=== PATIENT | male | born 1965 | race Caucasian/White ===

== ENCOUNTER → 2020-05-17 15:07 | Outpatient (BNVA) | payer OTHER, SELFPAY | PROVIDERS: PCP Internal Medicine; Referring Provider Internal Medicine; Visit Provider Internal Medicine Cardiovascular Disease | DX: R06.02 Shortness of breath (principal); I48.0 Paroxysmal atrial fibrillation; I10 Essential (primary) hypertension; Z79.82 Long term (current) use of aspirin; Z79.899 Other long term (current) drug therapy | CPT/HCPCS: 93005 ==

== ENCOUNTER → 2021-09-01 14:39 | Outpatient (BNVA) | payer BC, SELFPAY | PROVIDERS: PCP Internal Medicine; Referring Provider Internal Medicine; Visit Provider Internal Medicine Cardiovascular Disease | DX: I48.0 Paroxysmal atrial fibrillation (principal); I10 Essential (primary) hypertension; R06.02 Shortness of breath; Z79.899 Other long term (current) drug therapy | CPT/HCPCS: 93005 ==

== ENCOUNTER 2021-09-27 07:13 | Outpatient (REF) | payer BC, SELFPAY ==
[2021-09-27 07:41] LABS: Hematocrit 49.9 % (42.0-52.0); Hemoglobin 16.7 g/dl (14.0-18.0); Mean Corpuscular HGB Conc 33.5 g/dl (31.0-36.0); Mean Corpuscular Hemoglobin 30.9 pg (27.0-33.0); Mean Corpuscular Volume 92.4 fL (80.0-98.0); Mean Platelet Volume 11.8 fL (9.4-12.4); Platelet Count 200 X10*3/uL (160-400); Red Cell Distribution Width 12.4 % (11.0-16.0); White Blood Count 8.8 X10*3/uL (4.8-10.8)
[2021-09-27 08:02] LABS: Anion Gap 12 (12-20); Blood Urea Nitrogen 13 mg/dL (9-16); Calcium 9.9 mg/dL (8.4-10.2); Carbon Dioxide 33 mmol/L (22-29); Chloride 104 mmol/L (96-108); Cholesterol 247 mg/dL; Estimated Glomerular Filt Rate > 60; Glucose Random 128 mg/dL (60-115); HDL Cholesterol 45 mg/dL; LDL Cholesterol Calculated 149 mg/dl; Potassium 4.4 mmol/L (3.3-5.1); Sodium 145 mmol/L (135-145); Triglycerides 268 mg/dL
== END 2021-09-27 07:14 | disposition home or self-care (01) ==
LOC: HO.LAB 07:13
PROVIDERS: PCP Internal Medicine; Visit Provider Internal Medicine Cardiovascular Disease
DX: I25.10 Atherosclerotic heart disease of native coronary artery without angina pectoris (principal); R06.02 Shortness of breath
CPT/HCPCS: 36415; 80048; 80061; 85027

== ENCOUNTER → 2021-10-03 07:33 | Outpatient (REF) | payer BC, SELFPAY ==
--- NOTE | ~2021-10-03 | NM_ITS ---
Exercise Myocardial perfusion study Indication: Shortness of breath to evaluate for myocardial ischemia Technique: The patient was brought in for an exercise perfusion study on 10/03/2021. Patient performed exercise as per Dwain protocol and was injected 30 mCi of sestamibi was given intravenously one target HR was achieved. Images were obtained using the SPECT gamma camera interlaced with the gating device. Images were obtained in supine position. Resting perfusion study was performed on 10/04/2021. Patient was administered 30 mCi of sestamibi intravenously at rest. Images were then obtained in supine position. Images obtained with and without CT attenuation. Total DLP 109 mGy-cm. Images were processed with the software and compared side to side in short axis, horizontal long axis and vertical long axis views. Findings: The stress perfusion study showed non attenuated images show mildly reduced uptake in the basal septum, moderately reduced uptake in the basal inferior and mildly reduced uptake. Wall of the LV myocardium. Remainder of the LV myocardium is normally perfused. Attenuation corrected images show mildly reduced uptake in the basal septum of the LV myocardium. Remainder of the LV myocardium is normally perfused. The gated study shows normal LV systolic function with calculated LVEF of 71%. LV cavity is normal in size. The gated study shows normal systolic wall thickening and contraction of all segments. There is no transient ischemic dilation. Resting study shows non attenuated images show moderately reduced uptake in the basal inferior and part improved uptake in the basal septum and mid inferior wall of the LV myocardium. Attenuation corrected images also showed improved uptake in the basal septum of the LV myocardium.. Gating at rest reveals normal systolic wall motion with ejection fraction at 74%. The findings are consistent with small area of mild intensity reversible defect of the basal septum suggestive of ischemia.. NM/NM cardiolite stress test Impression: 1. Basal septal ischemia of mild intensity 2. Gated LVEF is 71% 3. Transient ischemic dilatation not present Stress EKG is nondiagnostic for ischemia
--- NOTE | 2021-10-03 07:35 | CA_ITS ---
Acquisition Time: 2021-10-03 07:59:43 Total Exercise Time: 00:05:30 Test Indications: SOB, CP, AFIB Medications: NADOLOL VALSARTAN AMLODIPINE ASA Protocol: DWAIN Max HR: 141 BPM 87% of Pred: 162 BPM Max BP: 210/106 mmHG Max Work Load: 7.0 METS Exercise stress test with exercise 5 min 30 sec of Dwain protocol, with moderate shortness of breath, with isolated PACs, with BP 162/92 at baseline and cinthya to 210/106 with exercise, with nondiagnostic EKG due to baseline EKG abnormality: downsloping ST with T inversion inferiorly and V4-V6. BP improved in recovery. He took his usual home Nadolol in recovery. Nuclear images pending. Test reviewed with Dr Escalona. Referred By: Baljit Lai Overread By: JANEL REYES
== END ==
LOC: HO.CARD 07:33
PROVIDERS: PCP Internal Medicine; Visit Provider Internal Medicine Cardiovascular Disease
DX: R06.02 Shortness of breath (principal); R07.9 Chest pain, unspecified
CPT/HCPCS: 78452; 93017; A9500; J2785

== ENCOUNTER → 2021-10-28 07:25 | Outpatient (REF) | payer BC, SELFPAY ==
--- NOTE | 2021-10-28 07:29 | CA_ITS ---
Transthoracic Echocardiogram Patient (Last, First, Middle): Marcin Jones, Gender: Male Date of : 1965 Age: 56 Procedure Date: 10/28/2021 Procedure Type: Transthoracic Echocardiogram Location: OP Height: 180.34 cm Weight: 97.07 kg BSA: 2.17 m2 Heart Rate: bpm BP: 180 / 100 mmHg Industrial Truck Mechanic: VH/TO Referring MD: Baljit Lai MD Electric Truck Operator: Baljit Lai MD Symptoms: R06.02 - Shortness of breath Study Quality: Fair ECG Rhythm: Sinus Conclusions: - 1. Normal LV systolic and diastolic function 2. Normal cardiac valvular Doppler 3. Normal RV systolic pressure 4. No pericardial effusion Findings Left Ventricle Normal left ventricular size and systolic function. There is mildly increased left ventricular wall thickness. The visually estimated ejection fraction is between 60-65%. Spectral Doppler is indicative of a normal filling pattern. Right Ventricle Normal right ventricular cavity size and systolic function. Atria The left atrium is normal in size. Interatrial shunt cannot be excluded. The right atrium is normal in size. Aortic Valve The aortic valve structure and function is likely normal. There is no aortic valve stenosis. There is no aortic valve regurgitation. Mitral Valve Likely normal mitral valve structure and function. There is trace mitral valve regurgitation. There is no mitral valve stenosis. Pulmonic Valve The pulmonic valve was not well visualized. Tricuspid Valve The tricuspid valve was not well visualized. There is trace tricuspid valve regurgitation. The right ventricular systolic pressure is normal. The right ventricular systolic pressure is 16 mmHg. Normal right atrial pressure. There is no evidence of pulmonary hypertension. Great Vessels All visible segments of the aorta are normal in size. The pulmonary artery was not well visualized. Venous The inferior vena cava is normal in size and collapses greater than 50% with inspiration. Pericardium/Pleural There is no evidence of pericardial effusion. Prior Study Comparison No significant change compared to prior study dated: 01/15/2019. Measurements 2D Linear Measurements IVSd: 1.16 0.6-0.9/0.6-1.0 cm LVIDd: 4.41 3.9-5.3/4.2-5.9 cm LVIDd Index: 2.03 2.4-3.2/2.2-3.1 cm/m2 LVIDs: 2.82 2.0-3.6 cm LVPWd: 1.21 0.7-1.1 cm LA Diam: 3.80 2.7-3.8/3.0-4.0 cm LAIDs Index: 1.75 1.5-2.3 cm/m2 LV Mass: 234.94 67-162/88-224 g LV Mass Index: 108.27 43-95/49-115 g/m2 LVOT Diam: 2.00 3.0+(-)1.3 cm Mitral Valve MV Pk E: 1.00 MV PK A: 0.55 MV Decel Time: 185.00 E/A: 1.80 E'Lateral: 12.60 E'Medial: 6.20 E/E' Med: 16.10 E/E' Lat: 7.90 PHT: 54.00 MVA PHT: 4.07 Decel Mower: 5.39 Aortic Valve AoV Pk Nigel: 1.02 AoV Mn Nigel: 0.71 AoV VTI: 0.22 AoV Pk Grad: 4.00 Aov Mn Grad: 2.00 VERONIQUE Cont.VTI: 3.14 LVOT LVOT Pk Nigel: 1.03 LVOT Mn Nigel: 0.65 LVOT VTI: 0.22 LVOT Pk Grad: 4.00 LVOT Mn Grad: 2.00 LVOT Diam: 2.00 LVOT Area: 3.14 Diastolic Function MV Pk E: 1.00 MV Pk A: 0.55 E/A: 1.80 E'Medial: 6.20 E/E' Med: 16.10 E' Laterial: 12.60 E/E' Lat: 7.90 Right Ventricle TAPSE (mm): 24.30 TVS' Nigel: 12.00 Tricuspid Valve TR Pk Nigel: 1.82 TR Pk Grad: 13.00 RA Press: 3.00 RVSP: 16.00 Great Vessels Aorta Sinus of Valsalva: 3.89 2.0-3.[address] Ridge: 2.69 1.7-3.4 cm Ao Asc: 3.10 2.1-3.4 cm Ao Arch: 3.00 Updated in Other Vendor System with Status of Final Baljit Lai MD electronically signed on 10/28/2021 3:49:07 PM with status of Final
== END ==
LOC: HO.CARD 07:25
PROVIDERS: PCP Internal Medicine; Visit Provider Internal Medicine Cardiovascular Disease
DX: R06.02 Shortness of breath (principal)
CPT/HCPCS: 93306

== ENCOUNTER 2021-11-25 07:37 | Outpatient (REF) | payer BC, SELFPAY ==
[2021-11-25 09:31] LABS: Anion Gap 13 (12-20); Blood Urea Nitrogen 10 mg/dL (9-16); Calcium 9.8 mg/dL (8.4-10.2); Carbon Dioxide 30 mmol/L (22-29); Chloride 103 mmol/L (96-108); Estimated Glomerular Filt Rate > 60; Glucose Random 130 mg/dL (60-115); Potassium 4.5 mmol/L (3.3-5.1); Sodium 141 mmol/L (135-145)
== END 2021-11-25 07:38 | disposition home or self-care (01) ==
LOC: HO.LAB 07:37
PROVIDERS: PCP Internal Medicine; Visit Provider Internal Medicine Cardiovascular Disease
DX: I10 Essential (primary) hypertension (principal)
CPT/HCPCS: 36415; 80048

== ENCOUNTER → 2022-08-30 15:18 | Outpatient (BNVA) | payer BC, SELFPAY | PROVIDERS: PCP Internal Medicine; Referring Provider Internal Medicine; Visit Provider Internal Medicine Cardiovascular Disease | DX: I48.0 Paroxysmal atrial fibrillation (principal); I10 Essential (primary) hypertension | CPT/HCPCS: 93005 ==

== ENCOUNTER 2023-09-04 15:01 | Outpatient (AMB) | payer BC, SELFPAY ==
[2023-09-04 15:15] VITALS: BP 120/78; PULSE 78; BMI 33.4
--- NOTE | 2023-09-04 15:15 | A.OFFVIS_ITS ---
Intake Vital Signs 09/04/23 15:15 Height 5 ft 6 in Weight 207 lb 3.752 oz BMI 33.4 BP 120/78 Blood Pressure Location Lt brachial Position Sitting Pulse 78 Intake Visit Reasons: 1 yr f/up Intake Note: 1 year follow-up with ekg feeling good Freight Loader Required: No Allergies No Known Allergies [NKA] Allergy (Mild, Verified 05/17/20 15:18) NOT APPLICABLE Medication List - Last Reconciled 09/04/23 by Baljit Lai MD amlodipine 10 mg PO DAILY 90 days aspirin 81 mg PO DAILY nadolol 80 mg PO DAILY 90 days valsartan 320 mg PO DAILY 90 days HPI HPI Comments History of Present Illness Details Marcin comes for follow-up. He has been doing well. His blood pressure is generally well controlled. He said when he is under stressful situation his blood pressure is elevated otherwise most of the other time the blood pressure is fine. Denies any worsening exertional chest pain or shortness of breath. He has been trying to lose weight and has Diovan 3 modification has lost about 10 lb. He still gets flutters in his chest at nighttime but no prolonged irregular heartbeat or palpitations. No lightheadedness, syncope. No orthopnea, PND, leg edema. [facility] Medical History Paroxysmal atrial fibrillation HTN (hypertension) Surgical History No pertinent past surgical history Family History Father No problems noted. Mother No problems noted. Review of Systems Const Denies chills, Denies fatigue, Denies fever(s), Denies frequent falls, Denies weakness, Denies weight gain and Denies weight loss ENT Denies dizziness Card Denies chest pain, Denies leg edema, Denies lightheadedness, Denies palpitations, Denies dyspnea, Denies dyspnea on exertion, Denies orthopnea and Denies other (loss of consciousness) Resp Denies cough, Denies dyspnea and Denies dyspnea on exertion GI Denies hematochezia and Denies change in stool character Musc Denies abnormal gait, Denies muscle weakness, Denies numbness, Denies radiating pain into limb and Denies tingling Neuro Denies abnormal gait, Denies dizziness, Denies frequent falls, Denies numbness, Denies tingling and Denies weakness Endo Denies fatigue and Denies palpitations Physical Exam Vital Signs: Last Vital Signs Pulse 78 09/04/23 15:15 BP 120/78 09/04/23 15:15 BMI result Body Mass Index 33.4 Const General: cooperative, comfortable, no acute distress, alert and awake Nutritional Appearance: obese Orientation/consciousness: patient oriented x3 Limitations: no limitations Eyes General: appearance normal, both eyes and all related structures Neck Neck: Yes normal visual inspection, Yes trachea midline, Yes supple and Yes no JVD Chest Chest palpation & inspection: normal inspection of the chest Resp Effort & Inspection: normal respiratory effort Auscultation: clear to auscultation bilaterally Cardio Jugular venous distension: no JVD Palpation: normal PMI Rate: regular rate Rhythm: regular rhythm Heart sounds: S1 normal heart sound present and S2 normal heart sound present Peripheral pulses: Peripheral pulses 2+ throughout GI Inspection: Yes normal to inspection Auscultation: normal bowel sounds Skin General skin exam: no rashes or lesions noted Neuro General: patient oriented x3 and no focal motor deficits Extrem General: Yes no clubbing, cyanosis or edema Psych Appearance: grossly normal Assessment & Plan Assessment & Plan (1) Paroxysmal atrial fibrillation: Code(s): I48.0 - Paroxysmal atrial fibrillation Plan: Highly symptomatic paroxysmal atrial fibrillation this middle-aged man has not had recurrence on current medical therapy on nadolol as well as change in his triggers. He is avoiding simultaneous eating heavy meals and alcohol. He does have increased flutter under stressful situation. We discussed about stress mitigation strategies. Avoidance of stimulants was discussed. Continue participate in weight loss program. (2) HTN (hypertension): Code(s): I10 - Essential (primary) hypertension Plan: Difficult control high blood pressure which is currently well optimized on triple therapy with amlodipine, nadolol and valsartan. Continue the same. He is derived good clinical benefit. No signs or symptoms of heart failure. Check lipid panel in near future and if LDL significantly elevated will benefit from statin therapy. Low-salt diet was discussed advised to monitor blood pressure at home maintain a log. Goal blood pressure less than 130/84. Follow up in the clinic in 1 year's time, sooner p.r.n.. Thank you for allowing me to partake in his care Orders: Orders Lipid Panel Today I10 - Essential (primary) hypertension Coding Level of Care Code Est Pt Level 4 (89446) Diagnoses Paroxysmal atrial fibrillation I48.0 HTN (hypertension) I10
== END 2023-09-04 15:39 | disposition home or self-care (01) ==
PROVIDERS: Visit Provider Internal Medicine Cardiovascular Disease
DX: I48.0 Paroxysmal atrial fibrillation (principal); I10 Essential (primary) hypertension
CPT/HCPCS: 99214

== ENCOUNTER → 2023-09-04 15:01 | Outpatient (BNVA) | payer BC, SELFPAY | PROVIDERS: Visit Provider Internal Medicine Cardiovascular Disease ==

== ENCOUNTER 2023-11-29 21:42 | Emergency (ER) | payer BC, SELFPAY ==
--- NOTE | ~2023-11-29 | XR_ITS ---
EXAMINATION: XR CHEST CLINICAL INFORMATION: Cough. COMPARISON: Chest radiograph 05/01/2018. TECHNIQUE: 2 views of the chest were obtained. FINDINGS: Normal appearance of the cardiomediastinal silhouette. No focal consolidation, pleural effusion or pneumothorax. No evidence of pulmonary edema. No acute osseous findings. XR/XR chest 2V IMPRESSION: No acute cardiopulmonary findings.
[2023-11-29 21:54] VITALS: BP 190/103; PULSE 100; RESP 18; TEMP 37.3; O2SAT 95; BMI 33.8
--- NOTE | 2023-11-29 23:48 | PC.NURSE ---
per chart comment pt left at 0645
== END 2023-11-29 23:49 | disposition left against medical advice (07) ==
PROVIDERS: Emergency Provider Emergency Medicine; PCP Internal Medicine
DX: R05.9 Cough, unspecified (principal); R06.02 Shortness of breath
CPT/HCPCS: 71046; 99281; 99283

== ENCOUNTER 2024-09-02 14:12 | Outpatient (AMB) | payer BC, SELFPAY ==
--- NOTE | 2024-09-02 14:43 | MHC.OFFVIS ---
Vital Signs 09/02/24 14:44 Height 5 ft 6 in Weight 220 lb 7.396 oz BMI 35.6 BP 122/82 Blood Pressure Location Lt brachial Position Sitting Pulse 72 Intake Visit Reasons: 6 mth f/up Intake Note: 6 month follow-up with ekg System Support Technician Required: No Allergies No Known Allergies [NKA] Allergy (Mild, Verified 11/29/23 21:59) NOT APPLICABLE Medication List - Last Reconciled 09/02/24 by Baljit Lai MD amlodipine 10 mg PO DAILY 90 days aspirin 81 mg PO DAILY hydralazine 10 mg PO BID nadolol 80 mg PO DAILY 90 days valsartan 320 mg PO DAILY 90 days HPI Comments Details: Naveed comes for follow-up. Unfortunately he has not been able to lose weight and has not been exercising regularly. He still gets exertional shortness of breath when he climbs 2 flights of stairs. No worsening in symptoms. No orthopnea PND, leg edema. No abdominal distension. Denies any prolonged palpitation irregular heartbeat consistent with atrial fibrillation. Recently had noted to have significantly elevated blood pressure started on hydralazine. Since then his blood pressure including today's exam is within normal limits. Does not regularly measures blood pressure at home. Denies any exertional chest pain. No lightheadedness, syncope. [facility] Medical History Paroxysmal atrial fibrillation HTN (hypertension) Surgical History No pertinent past surgical history Family History Father No problems noted. Mother No problems noted. Review of Systems Const Denies chills, Denies fatigue, Denies fever(s), Denies frequent falls, Denies weakness, Denies weight gain and Denies weight loss ENT Denies dizziness Card Denies chest pain, Denies leg edema, Denies lightheadedness, Denies palpitations, Denies dyspnea, Denies dyspnea on exertion, Denies orthopnea and Denies other (loss of consciousness) Resp Denies cough, Denies dyspnea and Denies dyspnea on exertion GI Denies hematochezia and Denies change in stool character Musc Denies abnormal gait, Denies muscle weakness, Denies numbness, Denies radiating pain into limb and Denies tingling Neuro Denies abnormal gait, Denies dizziness, Denies frequent falls, Denies numbness, Denies tingling and Denies weakness Endo Denies fatigue and Denies palpitations Physical Exam Vital Signs: Last Vital Signs Pulse 72 09/02/24 14:44 BP 122/82 09/02/24 14:44 BMI result Body Mass Index 35.6 Const General: cooperative, comfortable, no acute distress, alert and awake Nutritional Appearance: obese Orientation/consciousness: patient oriented x3 Limitations: no limitations Eyes General: appearance normal, both eyes and all related structures Neck Neck: Yes normal visual inspection, Yes trachea midline, Yes supple and Yes no JVD Chest Chest palpation & inspection: normal inspection of the chest Resp Effort & Inspection: normal respiratory effort Auscultation: clear to auscultation bilaterally Cardio Jugular venous distension: no JVD Palpation: normal PMI Rate: regular rate Rhythm: regular rhythm Heart sounds: S1 normal heart sound present and S2 normal heart sound present Peripheral pulses: Peripheral pulses 2+ throughout GI Inspection: Yes normal to inspection Auscultation: normal bowel sounds Skin General skin exam: no rashes or lesions noted Neuro General: patient oriented x3 and no focal motor deficits Extrem General: Yes no clubbing, cyanosis or edema Psych Appearance: grossly normal Office Procedures EKG Details: EKG shows normal sinus rhythm with diffuse ST T wave changes suggestive of repolarization abnormality [id number], Complete Assessment & Plan Assessment & Plan (1) Paroxysmal atrial fibrillation: Code(s): I48.0 - Paroxysmal atrial fibrillation Category: Medical Plan: Paroxysmal atrial fibrillation without any obvious clinical recurrence at this point time for many years. Has done well with rhythm control approach will continue pursue rhythm control approach. Continue aggressive blood pressure control. Encouraged to participate in regular physical activity and weight loss program which has shown to reduce recurrence of atrial fibrillation. Also advised to avoid triggers in his case which is heavy meals and alcohol use. Will follow up in 1 year's time after an echocardiogram. (2) HTN (hypertension): Code(s): I10 - Essential (primary) hypertension Category: Medical Plan: Hypertension with hypertensive heart disease. Clinically having exertional shortness of breath which is more likely related to his weight rather than heart failure. Encouraged to increase activity level and participate in weight loss program. Blood pressure is currently well optimized continue current therapy. Low-salt diet was discussed. He understands agrees. Follow-up echocardiogram in 1 year's time. Also consider statin therapy with target goal LDL less than 100 mg/dL. Advise lab work in near future. Follow up in the clinic in 1 year's time, sooner p.r.n.. Thank you for allowing me to partake in his care Orders: Orders Basic Metabolic Panel Today I10 - Essential (primary) hypertension Hemoglobin A1c Today I10 - Essential (primary) hypertension Complete Blood Count no Diff Today I10 - Essential (primary) hypertension Lipid Panel Today I10 - Essential (primary) hypertension CRP High Sensitivity Today E78.5 - Hyperlipidemia, unspecified, I10 - Essential (primary) hypertension TSH reflex Free T4 Today I10 - Essential (primary) hypertension Uric Acid Today I10 - Essential (primary) hypertension PSA, Ultra Sensitive Today I10 - Essential (primary) hypertension Coding Level of Care Code Est Pt Level 4 (45517) Complex EM visit Add On G2211 Diagnoses Paroxysmal atrial fibrillation I48.0 HTN (hypertension) I10 CPT Codes EKG - CPT: [id number], Complete ([id number])
[2024-09-02 14:44] VITALS: BP 122/82; PULSE 72; BMI 35.6
== END 2024-09-02 15:10 | disposition home or self-care (01) ==
PROVIDERS: PCP Internal Medicine; Visit Provider Internal Medicine Cardiovascular Disease
DX: I48.0 Paroxysmal atrial fibrillation (principal); I10 Essential (primary) hypertension
CPT/HCPCS: 93010; 99214

== ENCOUNTER → 2024-09-02 14:12 | Outpatient (BNVA) | payer BC, SELFPAY | PROVIDERS: PCP Internal Medicine; Visit Provider Internal Medicine Cardiovascular Disease | DX: I48.0 Paroxysmal atrial fibrillation (principal); I10 Essential (primary) hypertension | CPT/HCPCS: 93005 ==

== ENCOUNTER 2025-03-12 14:07 | Outpatient (AMB) | payer BC, SELFPAY ==
--- NOTE | 2025-03-12 14:10 | MHC.PC.OV ---
Vital Signs 03/12/25 14:19 Height 5 ft 6 in Weight 225 lb BMI 36.3 BP 152/100 H Blood Pressure Location Rt brachial Position Sitting Respiration 18 Pulse 71 Pulse Source Pulse Oximeter Temp 97.9 F Pulse Oximetry (%) 97 Oxygen Delivery Method Room Air Intake Visit Reasons: establish care-Dr Arellano - see comments Reimbursement Analyst Required: No Accompanied by: Self / Same As Patient Allergies No Known Allergies (NKA) Allergy (Mild, Verified 11/29/23 21:59) NOT APPLICABLE Tobacco use date assessed: 03/12/25 Dental Screening Dental Screen Date: 03/12/25 Did you have a dental visit in the last 12 months?: Yes Did you have a dental problem in the last 6 months where you did not have access to dental care?: No Was dental information given to patient?: Patient has dentist HPI HPI Comments History of Present Illness Details The patient is a 60-year-old male presenting for a wellness visit and management of chronic conditions. He has a history of Essential Hypertension for which he is on multiple medications including amlodipine 10 mg daily, hydralazine 10 mg twice a day, nadolol 80 mg daily, and valsartan 320 mg daily. The patient's blood pressure during the visit was noted to be 152/100 mmHg, which he attributes to anxiety related to medical visits. He has been managing his blood pressures by monitoring at home but notes that it tends to rise during doctor's appointments. The patient also has Atrial Fibrillation, for which he opts out of taking blood thinners like Eliquis, preferring to use aspirin after discussion with his provider. He reports a history of hospitalization for Atrial Fibrillation episodes but has not experienced an episode for approximately 8 years. He is apprehensive about blood thinners due to potential side effects and prefers to continue with aspirin therapy, which he feels has been effective thus far. Socially, the patient admits to a 30-year history of smoking a pack per day, having quit 10 years ago, and a significant alcohol intake consisting of three to four glasses of wine daily. Family history includes lung cancer in the mother and colon cancer in the father, contributing to his scheduled preventative health screenings including a colonoscopy. He acknowledges being peñaloza but is not currently sexually active. There is no recent history of drug use or allergies. Medical History: - Essential Hypertension - Atrial Fibrillation - History of tobacco use - Current alcohol use disorder Medications: - Amlodipine 10 mg daily for Essential Hypertension - Hydralazine 10 mg twice a day for Essential Hypertension - Nadolol 80 mg daily for Essential Hypertension - Valsartan 320 mg daily for Essential Hypertension - Aspirin for Atrial Fibrillation Family History: - Mother: Lung cancer, Hypertension - Father: Colon cancer, unspecified heart condition Diagnostic Results: - Colonoscopy due in relation to father?s history of colon cancer - Low Dose CT for lung cancer screening due to smoking history Social - Previously smoked one pack per day for 30 years, quit 10 years ago. - Consumes three to four glasses of wine daily - Has safe housing, lives in own house. [facility] Medical History (Updated 03/12/25 @ 14:38 by Tulio Clemens MD) Alcohol use disorder Tobacco use disorder Paroxysmal atrial fibrillation HTN (hypertension) Surgical History (Updated 03/11/25 @ 16:28 by Paula Gale) History of colonoscopy (~12/18/18) Family History Father No problems noted. Mother No problems noted. Social History Housing: House Patient Tobacco Use Status: Former Tobacco user Tobacco use type: Cigarette Years Smoked: 40 years-quit 10 years ago e-Cigarette/Vaping Use: Never Used service: No Current occupational status: employed Current occupation: [employer] Questionnaire PHQ-9 Over the last 2 weeks, how often have you been bothered by any of the following problems? 1. Little interest or pleasure in doing things: not at all 2. Feeling down, depressed, or hopeless: not at all 3. Trouble falling or staying asleep, or sleeping too much: several days 4. Feeling tired or having little energy: not at all 5. Poor appetite or overeating: not at all 6. Feeling bad about yourself - or that you are a failure or have let yourself or your family down: not at all 7. Trouble concentrating on things, such as reading the newspaper or watching television: not at all 8. Moving or speaking so slowly that other people could have noticed. Or the opposite - being so fidgety or restless that you have been moving around a lot more than usual: not at all 9. Thoughts that you would be better off or of hurting yourself in some way: not at all Total score: 1 Depression Screening Interpretation: Negative Depression Screening Done: Yes 89309 - PHQ-9 Billing: Yes Source: Developed by Drs. Tevin Tucker, Tawanna Craig, Tho Giang and colleagues, with an educational holli from [employer]. Thrive Questionnaire Date Thrive assessed: 03/12/25 I am a: Patient What is your living situation today?: I have a steady place to live Within the past 12 months, did the food you bought not last and you didn't have the money to get more?: Never true Within the past 12 months, did you worry whether your food would run out before you got money to buy more?: Never true Do you have trouble paying for medicines?: No Do you have trouble getting transportation to medical appointments?: No Do you have trouble paying your heating and electricity bill?: No Do you have trouble taking care of your child, family member or friend?: No Do you have trouble with day-to-day activities such as bathing, preparing meals, shopping, managing finances, etc.?: No Are you currently unemployed and looking for a job?: No Are you interested in more education?: No THRIVE Score: 0 AUDIT C Alcohol Use Questionnaire (AUDIT-C) 1. How often do you have a drink containing alcohol?: 4 or more times a week 2. How many drinks containing alcohol do you have on a typical day when you are drinking?: 3 or 4 3. How often do you have six or more drinks on one occasion?: Never Total Score: 5 Score Reviewed/Action Taken: Yes MAXIMUS-7 AMB Questionnaire MAXIMUS-7 Date MAXIMUS - 7 assessed: 03/12/25 Feeling nervous, anxious, or on edge: 0 = Not at all Not being able to stop or control worryin = Not at all Worrying too much about different things: 0 = Not at all Trouble relaxin = Not at all Being so restless that it is hard to sit still: 0 = Not at all Becoming easily annoyed or irritable: 0 = Not at all Feeling afraid as if something awful might happen: 0 = Not at all Total MAXIMUS-7 score (0-4 normal; 5-9 mild; 10-14 moderate; 15-21 severe): 0 Source: Developed by Drs. Tevin Tucker, Tawanna Craig, Tho Giang and colleagues, with an educational holli from [employer]. MAXIMUS-7 Assessment Billing MAXIMUS-7 Assessment Tool: MAXIMUS-7 Assessment 46700 Physical exam (Primary Care) Vital Signs: Last Vital Signs Temp 97.9 F 03/12/25 14:19 Pulse 71 03/12/25 14:19 Resp 18 03/12/25 14:19 BP 152/100 H 03/12/25 14:19 Pulse Ox 97 03/12/25 14:19 Oxygen Delivery Method Room Air 03/12/25 14:19 BMI result Body Mass Index 36.3 Tobacco/Smoking Status: Tobacco use Status Tobacco use date assessed 03/12/25 03/12/25 14:22 Patient Tobacco Use Status Former Tobacco user 03/12/25 14:22 Tobacco use type Cigarette 03/12/25 14:22 e-Cigarette/Vaping Use Never Used 03/12/25 14:22 Depression Screening Interpretation: Negative Coding Level of Care Code New Pt Level 4 (74646) New Pt Prev Care 40-64y(14959) Diagnoses Hypertension, unspecified type I10 Hypertension type: unspecified Paroxysmal atrial fibrillation I48.0 Tobacco use disorder F17.200 Alcohol use disorder F10.90 Additional Codes PHQ-9 - 64818 - PHQ-9 Billing: Yes ([id number]) MAXIMUS-7 Assessment Billing - MAXIMUS-7 Assessment Tool: MAXIMUS-7 Assessment 23316 ([id number]) Assessment & Plan Assessment & Plan (1) HTN (hypertension): Comment: - Maintain current antihypertensive regimen with amlodipine, hydralazine, nadolol, and valsartan. - Encourage home blood pressure monitoring to track day-to-day levels. - Discussed dietary modifications including reducing sodium and processed food intake to aid blood pressure control. Code(s): I10 - Essential (primary) hypertension Category: Medical Qualifiers: Hypertension type: unspecified Qualified Code(s): I10 - Essential (primary) hypertension (2) Paroxysmal atrial fibrillation: Comment: - Continue low-dose aspirin therapy based on patient's current preference; discuss risks and benefits of anticoagulation. - Patient advised to research anticoagulants such as Eliquis and Xarelto for future consideration. Code(s): I48.0 - Paroxysmal atrial fibrillation Category: Medical (3) Tobacco use disorder: Comment: - Recommend lung cancer screening with low-dose CT due to smoking history. - 30 PPD Code(s): F17.200 - Nicotine dependence, unspecified, uncomplicated Category: Medical (4) Alcohol use disorder: Comment: - Strongly advised patient to reduce alcohol intake to minimize liver damage and other health risks. Code(s): F10.90 - Alcohol use, unspecified, uncomplicated Category: Medical Plan: Health Maintenance: - Colonoscopy ordered due to family history of colon cancer. - Lung cancer screening with low-dose CT scan recommended due to smoking history. - Blood work ordered for comprehensive screening: cholesterol, A1c, thyroid, vitamin D, HIV, Hepatitis, syphilis. - Discussed lifestyle modifications including diet, exercise, and alcohol reduction. Patient was informed and verbally consented to the use of an ambient scribe for clinic note documentation during this visit. Plan During today's visit, we thoroughly discussed the patient's existing conditions, including essential hypertension and atrial fibrillation. We reviewed the importance of adhering to the prescribed hypertension regimen and encouraged the patient to regularly monitor his blood pressure at home. The probable benefits of anticoagulant therapy for atrial fibrillation were discussed, but the patient prefers to continue with aspirin therapy, showing apprehension towards side effects of blood thinners. We addressed his alcohol consumption, underlining the long-term health risks and advising a reduction. Preventative measures such as colonoscopy and lung cancer screenings were emphasized, aligning with the patient's family history and smoking past. The patient agreed to follow the proposed management plan and will use this guidance to make informed lifestyle changes. Orders: Orders Complete Blood Count Auto Diff Today I10 - Essential (primary) hypertension, I48.0 - Paroxysmal atrial fibrillation Comprehensive Met. Panel Today I10 - Essential (primary) hypertension, I48.0 - Paroxysmal atrial fibrillation Hemoglobin A1c Today I10 - Essential (primary) hypertension, I48.0 - Paroxysmal atrial fibrillation Hepatitis A,B,C Profile Today I10 - Essential (primary) hypertension, I48.0 - Paroxysmal atrial fibrillation HIV Ab/Ag Today I10 - Essential (primary) hypertension, I48.0 - Paroxysmal atrial fibrillation Lipid Panel Today I10 - Essential (primary) hypertension, I48.0 - Paroxysmal atrial fibrillation Vitamin D 25-OH Total Today I10 - Essential (primary) hypertension, I48.0 - Paroxysmal atrial fibrillation TSH reflex Free T4 Today I10 - Essential (primary) hypertension, I48.0 - Paroxysmal atrial fibrillation Syphilis Screen Today I10 - Essential (primary) hypertension, I48.0 - Paroxysmal atrial fibrillation Referrals Open Access Screening Colonoscopy Referral Z12.11 - Encounter for screening for malignant neoplasm of colon Lung Cancer Screening Referral F17.200 - Nicotine dependence, unspecified, uncomplicated Scribe Plan - Not visible on output: - Continue current medications for hypertension and Atrial Fibrillation. - Monitor blood pressure at home regularly. - Reduce daily alcohol intake to a minimum. - Follow a low-sodium, low-processed food diet. - Complete ordered blood work and contact office if any issues arise. - Schedule colonoscopy and lung cancer screening as discussed.
[2025-03-12 14:19] VITALS: BP 152/100; PULSE 71; RESP 18; TEMP 36.6; O2SAT 97; BMI 36.3
== END 2025-03-12 14:39 | disposition home or self-care (01) ==
LOC: HO.HMCHD 14:07
PROVIDERS: PCP Student in an Organized Health Care Education/Training Program; Visit Provider Student in an Organized Health Care Education/Training Program
DX: Z00.00 Encounter for general adult medical examination without abnormal findings (principal); I10 Essential (primary) hypertension; I48.0 Paroxysmal atrial fibrillation; F17.200 Nicotine dependence, unspecified, uncomplicated; F10.90 Alcohol use, unspecified, uncomplicated

== ENCOUNTER → 2025-03-12 14:07 | Outpatient (BNVA) | payer BC, SELFPAY | PROVIDERS: PCP Internal Medicine; Visit Provider Student in an Organized Health Care Education/Training Program | DX: I10 Essential (primary) hypertension (principal); I48.0 Paroxysmal atrial fibrillation; F10.90 Alcohol use, unspecified, uncomplicated; Z79.82 Long term (current) use of aspirin; Z79.899 Other long term (current) drug therapy; Z87.891 Personal history of nicotine dependence; Z13.31 Encounter for screening for depression; Z13.39 Encounter for screening examination for other mental health and behavioral disorders | CPT/HCPCS: 96127 ==

== ENCOUNTER 2025-04-17 06:58 | Outpatient (REF) | payer BC, SELFPAY ==
[2025-04-17 07:18] LABS: MANUAL DIFF FLAG NO
[2025-04-17 07:30] LABS: Hematocrit 49.4 % (42.0-52.0); Hemoglobin 16.5 g/dl (14.0-18.0); Imm Gran Abs Auto 0.02 X10*3/uL (0.00-0.03); Imm Gran Pct Auto 0.2 % (0.0-0.4); Lymphocytes Absolute Auto 2.1 X10*3/uL (1.2-4.9); Mean Corpuscular HGB Conc 33.4 g/dl (31.0-36.0); Mean Corpuscular Hemoglobin 30.6 pg (27.0-33.0); Mean Corpuscular Volume 91.7 fL (80.0-98.0); NRBC Abs Auto 0.000 X10*3/uL (0.0-0.012); NRBC Pct Auto 0.0 /100WBC (0.0-0.2); Platelet Count 185 X10*3/uL (160-400); Red Blood Count 5.39 X10*6/uL (4.60-5.80); White Blood Count 8.4 X10*3/uL (4.8-10.8)
[2025-04-17 08:23] LABS: Alanine Aminotransferase 94 U/L (0-40); Albumin Level 4.6 g/dL (3.5-5.0); Alkaline Phosphatase 63 U/L (39-117); Anion Gap 12 (12-20); Aspartate Amino Transferase 59 U/L (5-37); Blood Urea Nitrogen 11 mg/dL (9-16); Calcium 9.1 mg/dL (8.4-10.2); Carbon Dioxide 33 mmol/L (22-29); Chloride 103 mmol/L (96-108); Cholesterol 242 mg/dL (<200); Estimated Glomerular Filt Rate > 60; HDL Cholesterol 45 mg/dL (>40); Potassium 4.2 mmol/L (3.3-5.1); Sodium 144 mmol/L (135-145); Total Protein 7.5 g/dL (6.5-8.0); Triglycerides 261 mg/dL (<150)
[2025-04-17 08:32] LABS: HBS Num1 55.12 mIU/mL (0-7.99); HBc Num1 0.07 S/CO (0.00-0.79); HBsAGNum1 0.41 S/CO (0.00-0.99); HIV Num 1 0.04 S/CO (0.00-0.99); Hepatitis A Antibody IgM 0.23 Index (0-0.79); Hepatitis B Surface Antigen Negative (Negative); Syphilis Screen Nonreactive (Nonreactive); ~HepC Num1 0.07 S/CO (0.00-0.79); ~Hepatitis A Antibody IgM Nonreactive (Nonreactive); ~Hepatitis B Surface Antibody REACTIVE (Nonreactive); ~Hepatitis C Antibody Nonreactive (Nonreactive)
== END 2025-04-17 06:59 | disposition home or self-care (01) ==
LOC: HO.LAB 06:58
PROVIDERS: PCP Student in an Organized Health Care Education/Training Program; Visit Provider Student in an Organized Health Care Education/Training Program
DX: Z11.4 Encounter for screening for human immunodeficiency virus [HIV] (principal); Z20.2 Contact with and (suspected) exposure to infections with a predominantly sexual mode of transmission; I48.0 Paroxysmal atrial fibrillation; I10 Essential (primary) hypertension; Z13.21 Encounter for screening for nutritional disorder; Z13.1 Encounter for screening for diabetes mellitus
CPT/HCPCS: 36415; 80053; 80061; 82306; 83036; 84443; 85025; 86704; 86706; 86709; 86780; 86803; 87340; 87389